=== PATIENT | female | born 1935 | race Caucasian/White ===

== ENCOUNTER 2016-04-30 04:46 | Inpatient (IN) | payer OTHER ==
[~2016-04-30] VITALS: Ht 162.6 cm; Wt 45.6 kg
[2016-04-30] VITALS (14 sets, daily range): BP systolic 134–219; BP diastolic 41–70
[~2016-04-30 04:46] MED LIST: AMLODIPINE BESYL5 MG PO; APRESOLINE25 MG PO; ASPIRIN EC325 MG PO; BIOTIN10 MG PO; DOCUSATE SODIU100 MG PO; DOK PLUS TABLE1 EACH PO; HYDROCODON-ACE1 EAC7 PO; LEVOFLOXACIN750 MG PO; LOVENOX40 MG/0.4 SC; POLYETHYLENE GL17 GM PO; THERAGRAN1 TABLET PO
[2016-04-30 05:12] LABS: ADD MIUA? NO; BILIRUBIN NEGATIVE; BLOOD NEGATIVE; COLOR YELLOW ((YELLOW)); GLUCOSE (STRIP) NEGATIVE; KETONES 15; LEUKOCYTES NEGATIVE; NITRITE NEGATIVE; PH, URINE 7.5 (5-8); PROTEIN (STRIP) 30; SPECIFIC GRAVITY 1.011 (1.000-1.030); UCUL ADDED? NO
[2016-04-30 05:42] LABS: EOSINOPHIL (%) 0 % (0-5); IMMATURE GRANULOCYTE (%) 0.3 % (0.0-0.7); IMMATURE GRANULOCYTE COUNT 0.3 K/uL; LYMPHOCYTE COUNT 0.5 K/uL (1.0-2.8); MONOCYTE (%) 1.6 % (3-12); MONOCYTE COUNT 0.2 K/uL (0-0.8); NEUTROPHIL (%) 93.2 % (45-76); NEUTROPHIL COUNT 10.2 K/uL (1.8-6.4)
[2016-04-30 05:43] LABS: CHLORIDE 102 mEq/L (99-109); POTASSIUM 3.8 mEq/L (3.7-5.4); SODIUM 144 mEq/L (136-147)
[2016-04-30 05:45] LABS: GLUCOSE 139 mg/dL (70-99)
[2016-04-30 05:46] LABS: ANION GAP 15 MEQ/L (2-14)
[2016-04-30 05:49] LABS: GFR ESTIMATE (CALCULATED) > 59 mL/min/
[2016-04-30 05:50] LABS: UREA NITROGEN (BUN) 12 mg/dL (9-23)
[2016-04-30 05:51] LABS: CREATINE KINASE 84 IU/L (1-294)
[2016-04-30 05:53] LABS: TROP-I INTERPRETATION NEGATIVE; TROPONIN-I 0.07 ng/mL (0.0-0.30)
[2016-04-30 05:58] LABS: HEMATOCRIT 41.5 % (36.0-46.0); MCH 31.5 PG (29.0-34.0); MCV 92.6 FL (83-99); MEAN PLAT.VOLUME 13.5 uM^3 (9.5-12.4); RBC DIS.WIDTH-CV 11.9 % (11.8-14.6); RBC DIS.WIDTH-SD 39.5 % (39-53); RED BLOOD COUNT 4.48 M/uL (3.80-5.20); WHITE BLOOD COUNT 10.9 K/uL (4.1-10.2)
[2016-04-30 06:18] LABS: INFLUENZA A VIRAL ANTIGEN NEGATIVE; INFLUENZA B VIRAL ANTIGEN NEGATIVE
[2016-04-30 06:27] LABS: HEMATOLOGY COMMENT 1 REV; PLAT.SUFFICIENCY ADEQUATE; PLATELET COUNT 127 K/uL (156-360)
[2016-04-30] MEDS ORDERED: BIOTIN1000 MICRO PO (07:07)
[2016-04-30 10:11] LABS: METH RESISTANT S AUREUS PCR NEGATIVE (NEGATIVE)
[2016-04-30 10:12] LABS: PROBE CHECK PASS; SPECIMEN PROCESSING CONTROL PASS
[2016-04-30 12:49] LABS: TROP-I INTERPRETATION NEGATIVE
[2016-04-30 18:33] LABS: TROP-I INTERPRETATION INDETERMINATE; TROPONIN-I 0.43 ng/mL (0.0-0.30)
[2016-05-01] VITALS (15 sets, daily range): BP systolic 125–208; BP diastolic 43–72
[2016-05-01 05:58] LABS: INTER. NORMALIZED RATIO 1.1; PROTHROMBIN TIME 11.3 (9.2-11.2); PTT 28.9 (25-32)
[2016-05-01 09:25] LABS: ANION GAP 7 MEQ/L (2-14); CHLORIDE 104 MEQ/L (99-109); GFR ESTIMATE (CALCULATED) > 59 mL/min/; GLUCOSE 82 mg/dL (70-99); POTASSIUM 3.2 MEQ/L (3.7-5.4); SAMPLE HEMOLYSIS CHECK 0; SAMPLE ICTERIC CHECK 0; SAMPLE LIPEMIA CHECK 0; SODIUM 141 MEQ/L (136-147); UREA NITROGEN (BUN) 11 mg/dL (9-23)
[2016-05-01 09:31] LABS: EOSINOPHIL (%) 0.7 % (0-5); EOSINOPHIL COUNT 0.1 K/uL (0-0.3); HEMATOCRIT 37.7 % (36.0-46.0); IMMATURE GRANULOCYTE (%) 0.1 % (0.0-0.7); LYMPHOCYTE COUNT 1.2 K/uL (1.0-2.8); MCH 31.2 PG (29.0-34.0); MCHC 32.6 G/DL (30.0-36.0); MCV 95.7 FL (83-99); MONOCYTE (%) 11.4 % (3-12); MONOCYTE COUNT 0.8 K/uL (0-0.8); NEUTROPHIL (%) 70.2 % (45-76); NEUTROPHIL COUNT 4.8 K/uL (1.8-6.4); RBC DIS.WIDTH-CV 12.5 % (11.8-14.6); RBC DIS.WIDTH-SD 43.6 % (39-53); RED BLOOD COUNT 3.94 M/uL (3.80-5.20)
[2016-05-01 09:35] LABS: WHITE BLOOD COUNT 6.9 K/uL (4.1-10.2)
[2016-05-01 09:37] LABS: MEAN PLAT.VOLUME 14.5 uM^3 (9.5-12.4); PLAT.SUFFICIENCY DECREASED; PLATELET COUNT 99 K/uL (156-360); USER ID SDF
[2016-05-01 10:54] LABS: TROP-I INTERPRETATION NEGATIVE; TROPONIN-I 0.26 ng/mL (0.0-0.30)
[2016-05-01 15:55] LABS: APPEARANCE CLEAR/COLORLESS
[2016-05-01 16:10] LABS: RED CELL AREA COUNTED 18; RED CELL COUNT 56 /MM^3 (0-1); RED CELL DILUTION 1
[2016-05-01 16:11] LABS: CSF EOSINOPHILS ND % (0-25); MONO RAW COUNT ND; MONONUCLEAR WBC'S ND % (50-90); POLY RAW COUNT ND; POLYNUCLEAR WBC'S ND % (0-3); WBC AREA COUNTED 18; WBC DILUTION 1; WHITE CELL COUNT 0 /MM^3 (0-5); WHITE CELL RAW COUNT 0
[2016-05-01 16:12] LABS: APPEARANCE (RECHECK) CLEAR/COLORLESS; CSF TUBE NUMBER (RECHECK) TUBE #1
[2016-05-01 16:20] LABS: RED CELL AREA COUNTED 18; RED CELL COUNT (RECHECK) 32 /MM^3 (0-1); RED CELL DILUTION 1
[2016-05-02] VITALS (12 sets, daily range): BP systolic 118–214; BP diastolic 46–99
[2016-05-02 05:36] LABS: EOSINOPHIL (%) 1.1 % (0-5); EOSINOPHIL COUNT 0.1 K/uL (0-0.3); IMMATURE GRANULOCYTE (%) 0.1 % (0.0-0.7); LYMPHOCYTE COUNT 0.9 K/uL (1.0-2.8); MONOCYTE (%) 8.3 % (3-12); MONOCYTE COUNT 0.6 K/uL (0-0.8); NEUTROPHIL (%) 78.6 % (45-76); NEUTROPHIL COUNT 5.9 K/uL (1.8-6.4)
[2016-05-02 06:19] LABS: ALKALINE PHOSPHATASE 72 IU/L (3-129); ANION GAP 8 MEQ/L (2-14); CHLORIDE 104 MEQ/L (99-109); DIRECT BILIRUBIN 0.1 mg/dL (0.0-0.3); GFR ESTIMATE (CALCULATED) > 59 mL/min/; POTASSIUM 3.3 MEQ/L (3.7-5.4); SAMPLE HEMOLYSIS CHECK 0; SAMPLE ICTERIC CHECK 0; SAMPLE LIPEMIA CHECK 0; SODIUM 141 MEQ/L (136-147); TOTAL BILIRUBIN 0.5 MG/DL (0.0-1.0); UREA NITROGEN (BUN) 8 mg/dL (9-23)
[2016-05-02 06:24] LABS: GLUCOSE 106 mg/dL (70-99)
[2016-05-02 06:57] LABS: HEMATOCRIT 36.9 % (36.0-46.0); MCH 30.8 PG (29.0-34.0); MCHC 32.8 G/DL (30.0-36.0); MCV 93.9 FL (83-99); MEAN PLAT.VOLUME 13.7 uM^3 (9.5-12.4); PLAT.SUFFICIENCY DECREASED; PLATELET COUNT 107 K/uL (156-360); RBC DIS.WIDTH-CV 12.1 % (11.8-14.6); RBC DIS.WIDTH-SD 41.3 % (39-53); RED BLOOD COUNT 3.93 M/uL (3.80-5.20); USER ID SDF; WHITE BLOOD COUNT 7.6 K/uL (4.1-10.2)
[2016-05-03 00:10] VITALS: BP 138/64
[2016-05-03 04:10] VITALS: BP 142/61
[2016-05-03 05:12] LABS: CHLORIDE 101 mEq/L (99-109); POTASSIUM 3.8 mEq/L (3.7-5.4); SODIUM 141 mEq/L (136-147)
[2016-05-03 05:14] LABS: GLUCOSE 96 mg/dL (70-99)
[2016-05-03 05:15] LABS: ANION GAP 12 MEQ/L (2-14)
[2016-05-03 05:16] LABS: TOTAL BILIRUBIN 0.5 mg/dL (0.0-1.0)
[2016-05-03 05:18] LABS: ALKALINE PHOSPHATASE 81 IU/L (3-129); GFR ESTIMATE (CALCULATED) 57 mL/min/
[2016-05-03 05:19] LABS: UREA NITROGEN (BUN) 8 mg/dL (9-23)
[2016-05-03 08:00] VITALS: BP 128/60
[2016-05-03 12:00] VITALS: BP 101/41
[2016-05-03 16:01] VITALS: BP 135/56
[2016-05-03 19:40] VITALS: BP 141/69
[2016-05-04 04:26] VITALS: BP 155/77
[2016-05-04 07:13] LABS: ALKALINE PHOSPHATASE 85 IU/L (3-129); ANION GAP 7 MEQ/L (2-14); CHLORIDE 101 MEQ/L (99-109); GFR ESTIMATE (CALCULATED) > 59 mL/min/; GLUCOSE 82 mg/dL (70-99); POTASSIUM 4.5 MEQ/L (3.7-5.4); SAMPLE HEMOLYSIS CHECK 0; SAMPLE ICTERIC CHECK 0; SAMPLE LIPEMIA CHECK 0; SODIUM 141 MEQ/L (136-147); TOTAL BILIRUBIN 0.5 MG/DL (0.0-1.0); UREA NITROGEN (BUN) 11 mg/dL (9-23)
[2016-05-04 07:22] LABS: EOSINOPHIL (%) 3.6 % (0-5); EOSINOPHIL COUNT 0.3 K/uL (0-0.3); HEMATOCRIT 44.6 % (36.0-46.0); IMMATURE GRANULOCYTE (%) 0.3 % (0.0-0.7); LYMPHOCYTE COUNT 2.1 K/uL (1.0-2.8); MCHC 32.5 G/DL (30.0-36.0); MCV 95.3 FL (83-99); MONOCYTE (%) 9.9 % (3-12); MONOCYTE COUNT 0.8 K/uL (0-0.8); NEUTROPHIL (%) 58.6 % (45-76); NEUTROPHIL COUNT 4.5 K/uL (1.8-6.4); RBC DIS.WIDTH-CV 12.3 % (11.8-14.6); RBC DIS.WIDTH-SD 42.5 % (39-53); RED BLOOD COUNT 4.68 M/uL (3.80-5.20); WHITE BLOOD COUNT 7.6 K/uL (4.1-10.2)
[2016-05-04 07:24] VITALS: BP 160/84
[2016-05-04 07:41] LABS: PLAT.SUFFICIENCY DECREASED; PLATELET COUNT 122 K/uL (156-360)
[2016-05-04 11:34] VITALS: BP 161/76
[2016-05-04 15:22] VITALS: BP 164/74
[2016-05-05 08:32] VITALS: BP 163/72
[2016-05-05 11:06] VITALS: BP 146/66
[2016-05-05 15:19] VITALS: BP 174/79
[2016-05-05 16:50] VITALS: BP 176/79
[2016-05-05 20:03] VITALS: BP 158/72
[2016-05-06 04:00] VITALS: BP 150/64
[2016-05-06 07:30] VITALS: BP 207/84
[2016-05-06] MEDS ORDERED: AMLODIPINE BESY10 MG PO (09:22)
[2016-05-06] MEDS ORDERED: K-DUR20 MEQ PO (09:22)
[2016-05-06] MEDS ORDERED: QUETIAPINE FUMA25 MG PO ×2 (09:22)
[2016-05-06] MEDS ORDERED: BUSPAR15 MG PO (09:22)
[2016-05-06] MEDS ORDERED: TYLENOL REGULA325 MG PO (09:22)
[2016-05-06 11:58] LABS: EOSINOPHIL COUNT 0.2 K/uL (0-0.3); IMMATURE GRANULOCYTE (%) 0.4 % (0.0-0.7); LYMPHOCYTE COUNT 1.8 K/uL (1.0-2.8); MONOCYTE (%) 7.5 % (3-12); MONOCYTE COUNT 0.6 K/uL (0-0.8); NEUTROPHIL (%) 66.4 % (45-76); NEUTROPHIL COUNT 5.3 K/uL (1.8-6.4)
[2016-05-06 12:26] LABS: HEMATOCRIT 42.9 % (36.0-46.0); MCH 30.9 PG (29.0-34.0); MCHC 32.2 G/DL (30.0-36.0); MCV 96.2 FL (83-99); MEAN PLAT.VOLUME 13.9 uM^3 (9.5-12.4); PLAT.SUFFICIENCY ADEQUATE; PLATELET COUNT 140 K/uL (156-360); RBC DIS.WIDTH-CV 12.4 % (11.8-14.6); RBC DIS.WIDTH-SD 43.5 % (39-53); RED BLOOD COUNT 4.46 M/uL (3.80-5.20); USER ID BLP
[2016-05-06 12:40] LABS: ALKALINE PHOSPHATASE 94 IU/L (3-129); ANION GAP 6 MEQ/L (2-14); CHLORIDE 99 MEQ/L (99-109); GFR ESTIMATE (CALCULATED) > 59 mL/min/; GLUCOSE 97 mg/dL (70-99); POTASSIUM 4.4 MEQ/L (3.7-5.4); SAMPLE HEMOLYSIS CHECK 0; SAMPLE ICTERIC CHECK 0; SAMPLE LIPEMIA CHECK 0; SODIUM 139 MEQ/L (136-147); TOTAL BILIRUBIN 0.4 MG/DL (0.0-1.0); UREA NITROGEN (BUN) 18 mg/dL (9-23)
== END 2016-05-06 13:52 | DRG 948 ==
LOC: EME → EDBD 04:46 → 4WEST 07:38 → EDOF 07:38 → 4WEST 08:36 → 4EAST 05-03 19:23
PROVIDERS: Emergency Medicine; Internal Medicine; Nurse Practitioner Adult Health; Pediatrics; Physician Assistant; Radiology Diagnostic Radiology
PROC: 009U3ZX Drainage of Spinal Canal, Percutaneous Approach, Diagnostic (ICD-10-PCS; principal; 2016-05-01)
DX: R41.82 Altered mental status, unspecified (principal); E87.2 Acidosis; R00.1 Bradycardia, unspecified; R50.9 Fever, unspecified; E83.52 Hypercalcemia; I10 Essential (primary) hypertension; R26.2 Difficulty in walking, not elsewhere classified; F41.9 Anxiety disorder, unspecified; Z87.891 Personal history of nicotine dependence
CPT/HCPCS: 62270; 70450; 71010; 74176; 77003; 80048; 80053; 80076; 81003; 82550; 82945; 83605; 84157; 84484; 85025; 85610; 85730; 87040; 87070; 87086; 87102; 87205; 87502; 87641; 89051; 93005; 97530 GP; 99281; 99285; J0696; J1650; J1940; J3370; J7030; J7050; S0028